=== PATIENT | male | born 1990 | race Caucasian/White ===

== ENCOUNTER 2024-01-09 11:44 | Emergency (ER) | payer OTHER ==
[~2024-01-09] VITALS: Ht 177.8 cm; Wt 77.1 kg
[2024-01-09] MEDS ORDERED: CIPROFLOX-DEXA7.5 ML BOTHEARS (12:37)
[2024-01-09] MEDS ORDERED: AMOCLA875 PO (12:37)
== END 2024-01-09 13:05 | disposition home or self-care (01) ==
LOC: ER 11:44
DX: H60.501 Unspecified acute noninfective otitis externa, right ear (principal); H66.91 Otitis media, unspecified, right ear
CPT/HCPCS: 99282